=== PATIENT | female | born 2000 ===

== ENCOUNTER 2023-06-21 08:46 | Outpatient (CLI) | payer OTHER, SELFPAY | END 2023-06-21 08:47 | disposition home or self-care (01) | LOC: ANHAUDIO 08:47 | PROVIDERS: PCP Family Medicine; Visit Provider Family Medicine | DX: Z01.10 Encounter for examination of ears and hearing without abnormal findings (principal) | CPT/HCPCS: 92556; 92567 ==

== ENCOUNTER 2024-06-18 07:49 | Outpatient (CLI) | payer OTHER, SELFPAY ==
--- OUTSIDE RECORDS SUMMARY | 2024-06-18 07:52 | XMS_ITS ---
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 Name Role Phone ANDER ALANIS Attending Unavailable ALEXUS Gutierrez Primary Unavailable Immunization Immunization Date Status Additional Notes Code Code System MMR 11/27/2002 Completed 03 CVX IPV 2001 Completed 10 CVX IPV 2001 Completed 10 CVX IPV 07/31/2002 Completed 10 CVX DTaP 2001 Completed 20 CVX DTaP 2001 Completed 20 CVX DTaP 01/24/2002 Completed 20 CVX DTaP 11/27/2002 Completed 20 CVX varicella 07/31/2002 Completed 21 CVX Hib-Hep B 2001 Completed 51 CVX Hib-Hep B 2001 Completed 51 CVX Hib-Hep B 07/31/2002 Completed 51 CVX influenza, unspecified formulation 03/22/2003 Completed 88 CVX pneumococcal conjugate PCV 7 2001 Completed 100 CVX pneumococcal conjugate PCV 7 01/24/2002 Completed 100 CVX pneumococcal conjugate PCV 7 04/25/2002 Completed 100 CVX pneumococcal conjugate PCV 7 07/31/2002 Completed 100 CVX Influenza, live, trivalent, intranasal 03/01/2014 Completed 111 CVX meningococcal MCV4P 01/03/2019 Completed 114 CVX Influenza, split virus, quadrivalent, PF 01/22/2015 Completed 150 CVX Influenza, split virus, quadrivalent, PF 02/17/2016 Completed 150 CVX Influenza, split virus, quadrivalent, PF 02/07/2018 Completed 150 CVX Influenza, split virus, quadrivalent, PF 01/23/2021 Completed 150 CVX Influenza, split virus, quadrivalent, PF 04/28/2022 Completed 150 CVX HPV9 11/24/2015 Completed 165 CVX HPV9 01/03/2019 Completed 165 CVX COVID-19, mRNA, LNP-S, PF, 1 00 mcg/0.5mL dose or 50 mcg/0.25mL dose 07/02/2020 Completed 207 CVX COVID-19, mRNA, LNP-S, PF, 1 00 mcg/0.5mL dose or 50 mcg/0.25mL dose 07/30/2020 Completed 207 CVX COVID-19, mRNA, LNP-S, PF, 1 00 mcg/0.5mL dose or 50 mcg/0.25mL dose 03/10/2021 Completed 207 CVX COVID-19, mRNA, LNP-S, bivalent, PF, 50 mcg/0.5 mL or 25mcg/0.25 mL dose 08/13/2022 Completed 229 CVX Results US BREAST LEFT LTD - Complet ed: 07/20/2023 10:17 LOINC: See Scanned Image Attachment for Report Dictated By: Trans Initials: BG Trans Date: 07/21/23 11:28 <<REPDIST>> Social History Type Status Start Date End Date Code Code Syst em Smoking History Unknown if ever smoked [id number] Sex Female Assessment You had the following problems:OTHER HALFWAY (CURRENT) DRUG THERAPY Hospital Discharge Instructions Should you have any questions prior to discharge, please contact a member of your healthcare team. If you have left the hospital and have any questions, please contact your primary care physician. Reason For Referral No Data Found Problems Problem Start Date Resolved Date Status Code Code System OTHER HALFWAY (CURRENT) DR PRADO THERAPY active [id number] SNOMED-CT Plan of Treatment CT Facial Bones WO Contrast (55381) Encounters Encounter Diagnosis Start Date Code Code Sys tem Unspecified lump in the left breast, unspecified quadr ant 07/20/2023 SNOMED-CT Personal Care Team Section Performer Name Performer Role Active Date Inactive YU Victoria PCP - Primary care physician 2023-06-17 2023-07-20 TRACEY VAUGHAN PCP - Primary care physician 2023-07-20 Imaging Narrative Notes [facility] 07/21/2023 11:29 [facility] [address] [place], [place] [address] RADIOLOGY REPORT Patient Number: [id number] Patient Name: SUMA BECKMAN Type: O/P MR Number: [id number] : 2000 Age: 22 Sex: F Room #: Admit Date: 07/20/23 Discharge Date 07/20/23 Ordering Physician: ANDER ALANIS Family Physician: ALEXUS GARDUNO Second Physician: X-Ray Number : [id number] BREAST LEFT LTD [id number] COMPLETE:07/20/23 10:17 [facility] [id number] See Scanned Image Attachment for Report Dictated By: Trans Initials: BG Cooper Date: 07/21/23 11:28 <<REPDIST>>
--- OUTSIDE RECORDS SUMMARY | 2024-06-18 07:52 | XMS_ITS ---
Author Organization Unknown Address [address] [place] [phone] Phone Care Team Providers Care Flexible Nanny Name Role Phone SOL YU ENOCHNP Attending Unavailable Immunization Immunization Date Status Additional Notes [...] mL dose 08/13/2022 Completed 229 CVX Results TSH - Collect Date/Time: 10/2023 07:01 [facility] ID: [id number] [address] [place] [address], [phone] LOINC: 60082-1 Test Value Unit Reference Range Code Code System Flag TSH. 1.420 uIU/L L=0.470 H=4.680 54729-8 LOINC CBC W/ DIFF - Collect Date/T huseyin: 06/14/2023 07:01 [facility] ID: [id number] [address] [place] [address], [phone] LOINC: 52920-3 Test Value Unit Reference Range Code Code System Flag WBC 4.9 10^3uL L=4.8 H=10.8 RBC 5.48 10^6uL L=4.20 H=5.40 H HEMOGLOBIN 15.1 g/dL L=12.0 H=16.0 718-7 LOINC HEMATOCRIT 44.9 VOL% L=37.0 H=47.0 4544-3 LOINC MCV 81.9 fL L=81.0 H=99.0 MCH 27.6 pg L=27.0 H=32.0 MCHC 33.6 g/dL L=32.0 H=36.0 PLATELETS 276 10^3uL L=100 H=400 25991-1 LOINC RDW 14.1 % L=11.7 H=15.5 %GRAN 53.2 % L=40.0 H=70.0 20152-8 LOINC %LYMPH 40.1 % L=20.0 H=45.0 736-9 LOINC %MONO 4.3 % L=2.0 H=10.0 22980-7 LOINC %EOS 1.2 % L=0.0 H=6.0 713-8 LOINC %BASO 0.8 % L=0.0 H=3.0 706-2 LOINC #NEUT 2.6 10^3uL L=1.9 H=7.6 84581-5 LOINC #LYMPH 2.0 10^3uL L=0.9 H=4.9 45218-6 LOINC #MONO 0.2 10^3uL L=0.1 H=0.9 82316-3 LOINC #EOS 0.1 10^3uL L=0.0 H=0.6 712-0 LOINC #BASO 0.04 10^3uL L=0.00 H=0.10 84475-5 LOINC #IM GRANS 0.0 10^3uL L=0.0 H=7.0 01150-5 LOINC %IM GRANS 0.4 % L=0.0 H=5.0 96137-3 LOINC %NRB 0.0 L=0.0 H=0.2 81387-3 LOINC #NRB 0.000 L=0.000 H=0.012 89316-5 LOINC MANUAL DIFF NOT INDICATED RBC MORPH NOT INDICATED COMPREHENSIVE METABOLIC PANE L - Collect Date/Time: 06/14/2023 07:01 [facility] ID: [id number] [id number] [place], [place], [phone] LOINC: 53579-8 Test Value Unit Reference Range Code Code System Flag FASTING YES BUN 10 mg/dL L=7 H=20 3094-0 LOINC CREATININE 0.70 mg/dL L=0.52 H=1.04 2160-0 LOINC GLUCOSE 172 mg/dL L=74 H=106 2345-7 LOINC H SODIUM 139 mmol/L L=132 H=144 2951-2 LOINC POTASSIUM 4.5 mmol/L L=3.5 H=5.1 2823-3 LOINC CHLORIDE 108 mmol/L L=98 H=107 2075-0 LOINC H CO2 22.0 mmol/L L=22.0 H=30.0 2028-9 LOINC ANION GAP 14 L=10 H=20 97329-4 LOINC OSMOLALITY 291 mOs/kG L=280 H=296 46725-8 LOINC BUN/CREAT 14.3 3097-3 LOINC CALCIUM 9.6 mg/dL L=8.3 H=10.5 63864-2 LOINC AST 31 U/L L=15 H=46 1920-8 LOINC ALT 32 U/L L=9 H=72 1742-6 LOINC ALKALINE PHOS 78 U/L L=38 H=126 6768-6 LOINC TOTAL BILI 0.5 mg/dL L=0.2 H=1.3 1975-2 LOINC ALBUMIN 4.0 G/dL L=3.5 H=5.0 1751-7 LOINC TOTAL PROTEIN 6.9 g/L L=6.3 H=8.2 2885-2 LOINC A/G RATIO 1.4 68905-3 LOINC AGE 22 93193-3 LOINC eGFR NON-AFR 112 ml/min eGFR AFR AMER 136 ml/min HGB A1C -GLYCOHEMOGLOBIN - C ollect Date/Time: 06/14/2023 07:01 [facility] ID: [id number] [place], [place], [phone] LOINC: 4548-4 Test Value Unit Reference Range Code Code System Flag HGBA1C 5.3 % 4548-4 LOINC HIV 4th GEN Ab 1&2 p24 Ag in -house - Collect Date/Time: 06/14/2023 07:01 [facility] ID: [id number] [place], [place], [phone] LOINC: 75858-8 Test Value Unit Reference Range Code Code System Flag HIV-1 Ab NEGATIVE NORMAL: NON REACTIVE/NE HIV-2 Ab NEGATIVE HIV-p24 Ag NEGATIVE SEND TO IF? NO REFLEX? NO 5778-6 LOINC HEPATITIS C AB (HCV Ab) - Co llect Date/Time: 06/14/2023 07:01 [facility] ID: [id number] [address] [place] [address], [phone] LOINC: 37798-2 Test Value Unit Reference Range Code Code System Flag Hep C Virus Ab Non Reactive Non Reactive 39131-0 LOINC SEND TO IF? NO LIPID PANEL - Collect Date/T huseyin: 06/14/2023 07:01 [facility] ID: [id number] [address] [place] [address], [phone] LOINC: 04414-6 Test Value Unit Reference Range Code Code System Flag FASTING YES CHOLESTEROL 172 mg/dL L=0 H=200 2093-3 LOINC TRIGLYCERIDE 127 mg/dL L=0 H=150 2571-8 LOINC HDL 61 mg/dL L=40 H=60 2085-9 LOINC H LDL 80 mg/dL 9-1 LOINC Social History Type Status Start Date End Date Code Code Syst em Smoking History Unknown if ever smoked [id number] Sex Female Assessment You had the following problems:OTHER USP (CURRENT) DRUG THERAPY Hospital Discharge Instructions Should you have any questions prior to discharge, please contact a member of your healthcare team. If you have left the hospital and have any questions, please contact your primary care physician. 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
--- OUTSIDE RECORDS SUMMARY | 2024-06-18 07:53 | XMS_ITS | Data Portability ---
Author Organization [facility], [address] [place] [address] Neurology (ID) Address [address] [address] Care Team Providers Care Band Splicer Name Role Phone TRACEY VAUGHAN Primary Care Provider Assessment Encounter Date Assessment Date Assessment LastModified by Organization Details LastModified Time 12/14/2023 12/14/2023 History: This 23-year-old female who resides at [facility] and has developmental delays is brought in by her mom for evaluation. They had allergy testing done which found her to have milk and peanut allergies. They have been avoiding milk and peanuts. Her ears have been doing much better. No complaint of ear pain since making dietary changes and having treatment at last visit. Physical exam: Bilateral EACs are free of otorrhea or cerumen. Bilateral TMs are intact retracted. Middle ear spaces appear clear. Nose: No turbinate hypertrophy. Mouth: No oral lesion. Posterior pharynx: No erythema or exudate. No head or neck lymphadenopathy detected Impression: 1. Resolved chronic otitis externa 2. Eustachian tube dysfunction Plan: Recommended next visit on March 16 that we get a baseline audiogram and tympanogram for our chart. Mom states that patient does get hearing test done in [place] once a year. They are to contact us with any questions or problems [email or web address] Not available 12/14/2023 09:04:57 03/16/2024 03/16/2024 History: This pleasant 23-year-old female is here from [facility]. She has developmental delay she is accompanied to the appointment by ruthy Perla. Minda brings with her a copy of the patient's note From Her PCP Dated 12/26/2023. Visit patient's ear culture done 12/19/2023 had been reviewed. She had grown staph aureus which was susceptible to ciprofloxacin, clindamycin, erythromycin, gentamicin, levofloxcin, linezolid, moxifloxacin, oxacillin and rifampin. They treated with cephalexin 1000 mg twice daily for 10-day. Based on history it seems as though she starts to complain of ear pain most likely developing a middle ear infection and then ruptures her eardrum develops drainage and then outer ear infection. In July 2023 her ear culture done in our office grew Aspergillus and she was treated with boric acid/nystatin powder in the left ear weekly which they have continued. In October 2023 she was seen had chronic otitis externa of the left ear with resolving chronic myringitis she was treated at that time by reducing the amount of boric acid/nystatin powder to once daily. At last visit on 11/29 her left otitis externa and left myringitis were resolved and her left drum was intact retracted with middle ear space clear. Patient had ventilating tubes placed September [address] Lowry and removed in 2006 with Gelfoam patches. She has not had any other sets of tubes. The PCP note received was reviewed and it indicates that she has been seen in their office 9 times between June 2023 and December 2023 for the eye either otitis, sinusitis or pharyngitis issues. She is currently on treatment for allergic rhinitis with cetirizine 10 mg daily, montelukast 10 mg daily and a nasal steroid spray daily per PCP note. They did order a CT sinus which was completed on 01/04/2020 fourth which showed clear paranasal sinuses with minimal leftward nasal septal deviation and trace fluid in the left mastoid air cells. Current ear pain has been present for approximately 3 to 5 days. Caregiver states patient's been complaining and crying secondary to the severity of the ear pain. They have not seen any ear drainage. Patient requests tubes. Physical exam: Right EAC without cerumen excoriation. Right TM intact drum with mild retraction. Middle ear space appeared clear. Left EAC with a copious amount of cerumen and dried boric acid/nystatin powder which was removed under operating microscope with #5 and #3 suction to reveal the left drum to be intact retracted anteriorly with a mucopurulent effusion present in the left middle ear space with erythema of the left drum. No otorrhea present no granulation present. Nose: No turbinate hypertrophy. No purulent mucus. Mouth: No oral lesion. No head or neck lymphadenopathy detected. Nasopharynx: Verbal permission was obtained. Procedure was explained. Visualized with Flexible Machida Scope after topical anesthetizing the left nostril of Afrin and lidocaine. Nasopharynx was free of mass or lesion. The eustachian tube orifices were patent. Impression: 1. Acute left otitis media 2. Excessive cerumen in the left ear canal Plan: Left ear was cleaned under operating microscope. For treatment of left otitis media placed on clindamycin 300 mg 3 times daily for 10 days. Her office note brought by caregiver from 12/19/2023 was reviewed. They indicate patient has been seen 9 times between June 2023 and December 2023 for issues with recurrent otitis media, sinusitis and pharyngitis. She has been seen here twice since October 2023 for evaluation and follow-up of chronic otitis externa. At her last visit in December 2023 her left ear was clear and there is no otorrhea or granulation in the left canal but the left drum was retracted. Despite treating her allergy issues with antihistamine, montelukast and nasal steroid spray she continues with ear issues. She has a past history of ventilating tube placement in 2002. Given the recurrent nature of ear infections and the current infection present it is recommended she be considered for ventilating tube placement with Dr. Lowry. She has an appointment on April 24 for discussion. She may be able to tolerate this in office. She did very well with ear cleaning in office today. Her nasopharynx is evaluated in office today with Flexible Machida Scope there is no masses present in the nasopharynx to be occluding the left eustachian tube. SPECT the patient is having chronic middle ear effusions that developed into acute otitis media resulting in rupture of TM and purulent drainage and of the left ear canal that triggers otitis externa and has triggered the myringitis that was seen at previous visits, now resolved. [email or web address] Not available 03/16/2024 14:36:59 04/24/2024 04/24/2024 She is here for evaluation because of a persistent fluid in her left ear, is here for possible tympanostomy tube placement. She was last seen by Martin Whitley (Mollie) ENT PA-C back on March 16, and at that time was noted to have evidence of a recurrent effusion, she had multiple bouts of otitis media. She did not seen several times this past year, despite treating allergy issues, and antibiotics and has had agrees chronic middle ear effusions. She is now here for evaluation of possible left and possibly tube placement. PHYSICAL EXAMINATION: Well developed, well nourished in no acute distress. Patient able to communicate verbally with a normal voice. GENERAL: Inspection of head reveals no significant scars, lesions, or masses with good facial symmetry. EYES: Extraocular movements were intact with normal gaze. HEAD AND FACE: Overall appearance appeared normal. No scars, lesions, or masses. EARS: Both external pinnas were symmetric and without lesions. RIGHT external canal: normal, RIGHT tympanic membrane: clear and mobile . LEFT external canal: normal. LEFT tympanic membrane: Intact with a complete effusion. NOSE: External nose appeared straight; Septum was relatively straight nasal mucosa appeared normal. . MOUTH AND PHARYNX:Lips, and gums were unremarkable Exam of oral cavity, including oral mucosa, hard and soft palate were normal Tongue was normal Tonsils were small to absent, and posterior pharynx, appeared within normal limits. NECK: Supple with no evidence of masses, and palpation of the neck revealed no palpable lymphadenopathy; thyroid appeared normal and symmetric; trachea midline; overall appearance of neck appeared symmetrical. PLAN: 1. Procedure: After noting the persistent recurring problem with effusion and recurrent bouts otitis media in their LEFT ear, it was decided to proceed with a tube placement in the LEFT ear. The patient did agree, understand, and wish to proceed. The risks of the tympanostomy tube placement were discussed including but not limited to: persistent perforation, cholesteatoma, granulation tissue with ear bleeding, otorrhea as well as the risk of anesthesia were discussed. Informed consent was obtained. An explanation of the procedure was provided. The benefits and risks and of the procedure were discussed including the risks and benefits of alternative procedures, as well as the possible consequences of not undergoing the procedure were discussed. Patient/parent/leg al guardian did agree, understand, and wish to proceed. OPERATIVE PROCEDURE: LEFT tympanostomy tube placement with Dudley collar-button. SURGEON: Mikey Lowry M.D. ANESTHESIA: Local INDICATIONS: This patient has a history of persistent effusions. Therefore, it was decided to proceed with surgery at this time. FINDINGS: LEFT ear: Seromucoid otitis media DESCRIPTION OF PROCEDURE: The patient was placed in the supine position; attention was then turned to the LEFT external auditory canal. Cerumen was removed under microscopic control with use of curettes and forceps, and the TM was anesthetized with topical phenol in the inferior quadrant the tympanic membrane was incised in the inferior quadrant. The middle ear was then suctioned, and a tube was placed into the myringotomy without difficulty. The patient was awake and comfortable and did tolerate this well. COMPLICATIONS: None. ESTIMATED BLOOD LOSS: minimal. SPECIMENS: None. The patient is to use Cipro drops per orders. Postoperative instructions were given to the patient. They were instructed that they could get water in the ears. Follow up in the office in 1 month for recheck [email or web address] Not available 05/06/2024 22:30:12 Plan of Treatment Reminders Order Date Submit Date Provider Last Modified By Organization Details Last Modified Time Details Appointments Establish ed Patient 30.EST 2024 11:00A M CONNIE LEES Not available Not available Not available Establish ed Patient 15.EST 2024 07:45A Lisa Whitley Not available Not available Not available Lab urinalysi s, complete [address] [facility], [address] [place] [address], [id number], 05/11/2024 19:40:44 culture + sensitivi ty, urine [address] [facility], [address] [place] [address], [id number], 05/12/2024 19:23:00 Referral None recorded. Procedures None recorded. Surgeries None recorded. Imaging None recorded. Medication Orders clindamyc in HCl 300 mg capsule 2023 024 [facility], [address], [place], [id number], 03/16/2024 09:31:03 ciproflox acin 0.3 % eye drops 2023 024 [facility], [address], [place], [address], 04/24/2024 11:16:17 Patient TargetsNo targets recorded. Patient InstructionsNo instructions recorded. Reason for Referral None Reported. Results Created Date Observation Date Name Description Value Unit Range Abnormal Flag Note LastModifiedBy Organization Detail LastModifiedTime 05/11/1905/11/2024 urina lysis , compl ete urinalysis, complete LOW LEVEL S OF HEMOG LOBIN IN ABSEN CE OF HEMAT URIA MAY NOT BE [facility]IN[facility] SIGNI FICAN T. Not Available [facility] [address] [place] [address], [id number], 05/11/2024 19:40:44 05/11/1905/11/2024 urina lysis , compl ete color YELLOW Not Available [facility] [address] [place] [address], [id number], 05/11/2024 19:40:44 05/11/1905/11/2024 urina lysis , compl ete clarity TURBID Not Available [facility] [address] [place] [address], [id number], 05/11/2024 19:40:44 05/11/1905/11/2024 urina lysis , compl ete pH 5.5 5.0-7. 5 Not Available [facility] [address] [place] [address], [id number], 05/11/2024 19:40:44 05/11/1905/11/2024 urina lysis , compl ete specific gravity 1.030 1.000- 1.030 Not Available [facility] [address] [place] [address], [id number], 05/11/2024 19:40:44 05/11/1905/11/2024 urina lysis , compl ete blood NEGATI VE negati ve Not Available [facility] [address] [place] [address], [id number], 05/11/2024 19:40:44 05/11/19 25 05/11/2024 urina lysis , compl ete bilirubin NEGATI VE negati ve Not Available [facility] [address] [place] [address], [id number], 05/11/2024 19:40:44 05/11/19 25 05/11/2024 urina lysis , compl ete urobilinogen 0.2 0.2-1. 0 Not Available [facility] [address] [place] [address], [id number], 05/11/2024 19:40:44 05/11/19 25 05/11/2024 urina lysis , compl ete ketone TRACE negati ve abnormal Not Available [facility] [address] [place] [address], [id number], 05/11/2024 19:40:44 05/11/19 25 05/11/2024 urina lysis , compl ete glucose 3+ negati ve abnormal Not Available [facility] [address] [place] [address], [id number], 05/11/2024 19:40:44 05/11/19 25 05/11/2024 urina lysis , compl ete protein NEGATI VE negati ve Not Available [facility] [address] [place] [address], [id number], 05/11/2024 19:40:44 05/11/19 25 05/11/2024 urina lysis , compl ete nitrite NEGATI VE negati ve Not Available [facility] [address] [place] [address], [id number], 05/11/2024 19:40:44 05/11/19 25 05/11/2024 urina lysis , compl ete leukocytes NEGATI VE negati ve Not Available [facility] [address] [place] [address], [id number], 05/11/2024 19:40:44 05/11/19 25 05/11/2024 urina lysis , compl ete review * Micro scopi c resul ts revie wed by Techn oli st. Not Available [facility] [address] [place] [address], [id number], 05/11/2024 19:40:44 05/11/19 25 05/11/2024 urina lysis , compl ete RBC 0-2 0-2/hp f Not Available [facility] [address] [place] [address], [id number], 05/11/2024 19:40:44 05/11/19 25 05/11/2024 urina lysis , compl ete WBC 0-5 0-5/hp f Not Available [facility] [address] [place] [address], [id number], 05/11/2024 19:40:44 05/11/19 25 05/11/2024 urina lysis , compl ete squamous epithelial 6-10 0-10/h pf Not Available [facility] [address] [place] [address], [id number], 05/11/2024 19:40:44 05/11/19 25 05/11/2024 urina lysis , compl ete bacteria 1+ none abnormal Not Available [facility] [address] [place] [address], [id number], 05/11/2024 19:40:44 05/11/19 25 05/11/2024 urina lysis , compl ete hyaline cast 0-2 0-2/lp f Not Available [facility] [address] [place] [address], [id number], 05/11/2024 19:40:44 05/11/19 25 05/11/2024 urina lysis , compl ete calcium oxalate crystal PRESEN T absent abnormal Not Available [facility] Only - [facility] [address] [place] [address], [id number], 05/11/2024 19:40:44 05/11/19 25 05/12/2024 cultu re + sensi tivit y, urine urine culture and sens. BRAEDEN L URINE >100, 000 CFU/m L Mixed uroge nital ruthy , 3 or more colon y types indic ative of conta minat ion. Not Available [facility] [address] [place] [address], [id number], 05/12/2024 19:23:00 Result Notes None recorded. Problems Name Problem SNOMED Code Status Onset Date Resolution Date Notes Provider Name and Address Organization Details Recorded Time Chronic otitis externa 76897203 Active 2023 Martin Whitley PA-C [address] [place] [address], [address] [place] [address] 3, [facility] 4 09:05:31 Dysfunct ion of bilatera l eustachi an tubes 14466874375 80281 Active 2023 Martin Whitley PA-C [address] [place] [address], [address], [facility] 4 09:05:48 Excessiv e cerumen in ear canal 104408647 Active 2023 Martin Whitley PA-C [address] [place] [address], [address], [facility] 4 09:27:46 Acute left otitis media 710971803 Active 2023 Martin Whitley PA-C [address] [place] [address], [address] 3, [facility] 4 09:27:56 Chronic mucoid otitis media of left middle ear 26491608833 00693 Active 2023 Martin Whitley PA-C [address] [place] [address], [address] 3, [facility] 4 14:36:05 Genuine stress incontin ence 23056987 Active 2024 Kena Cole APRN, [employer] [address] , [place], [address], [facility] 5 10:28:03 Nocturna l enuresis 3024414 Active 2024 Kena Cole APRN, [employer] [address] , [place], [address], [facility] 5 10:28:09 Urinary crystal, calcium oxalate 719152297 Active 2024 Mariama saleh, [facility] 5 14:14:28 Chronic otitis externa 84868207 Completed 202312/14/2023 Removal Reason: Resolved Martin Whitley PA-C [address] [facility], [place], [address], [facility] 4 09:05:31 Chronic left myringit is 10303383690 [address]8611 Completed 202312/14/2023 Removal Reason: Resolved Martin Whitley PA-C [address] [facility], [place], [address], [facility] 4 09:05:20 Impacted cerumen in left ear 21816342469 84104 Active 2023 Martin Whitley PA-C [address] [facility], [place], [address], [facility] 4 11:07:11 Problem Notes None recorded. Medical Equipment None Reported. Allergies Allergen ID Allergen Name Allergen Category Reaction Reaction Severity Criticality Documentation Date Start Date Code Code System Note Provider Name and Address Organization Details Recorded Time 317849 Substance with sulfonami de structure and antibacte rial mechanism of action (substanc e) medicatio n rash Not available Not available 06/06/20232006 13683 8489 SNOMED React ion: Rash; Not Available Not Available Not Available Medications Name Sig Start Date Stop Date Status Note LastModified by Organization Details LastModified Time hydroxyzine pamoate 100 mg capsule TAKE ONE CAPSULE BY MOUTH AT BEDTIME 10/31 completed Not Available Not Available Not Available acetaminoph en 325 mg tablet Take 2 tablets every 4 hours by oral route as needed. active Not Available Not Available No t Available clindamycin HCl 300 mg capsule Take 1 capsule 3 times a day by oral route for 10 days. 2023 active Not Available Not Available Not Avai lable trazodone 50 mg tablet TAKE 1 AND 1/2 TABLETS BY MOUTH AT BEDTIME active Not Available Not Available No t Available cetirizine 10 mg tablet active Not Available Not Available Not Available fluconazole 150 mg tablet TAKE 1 TABLET BY MOUTH A ONE TIME DOSE - REPEAT IN 3 DAYS IF NO IMPROVEME NT 10/31 completed Not Available Not Available Not Available propranolol ER 60 mg capsule,24 hr,extended release take 1 capsule every day by oral route in the morning active Not Available Not Available No t Available venlafaxine ER 150 mg capsule,ext ended release 24 hr TAKE 1 CAPSULE BY MOUTH ONCE DAILY active Not Available Not Available No t Available sumatriptan 50 mg tablet TAKE ONE TAKE BY MOUTH AT ONSET OF MIGRAINE. MAY REPEAT IN TWO HOURS IF NEEDED active Not Available Not Available No t Available hydroxyzine pamoate 50 mg capsule TAKE 1 CAPSULE BY MOUTH EVERY MORNING active Not Available Not Available No t Available propranolol 40 mg tablet TAKE ONE TABLET BY MOUTH TWO TIMES A DAY 12/13 completed Not Available Not Available Not Available ciprofloxac in 0.3 % eye drops 3 drops to left ear at bedtime for 14 days. 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 2024 active Not Available Not Available Not Avai lable cephalexin 500 mg capsule 03/16 completed Not Available Not Available Not Available nystatin 100,000 unit/gram topical cream 12/13 completed Not Available Not Available Not Available buspirone 10 mg tablet TAKE TWO TABLETS BY MOUTH THREE TIMES A DAY active Not Available Not Available No t Available clotrimazol e 1 % topical solution INSTILL ONE TO TWO DROPS INTO AFFECTED EAR(S) TWICE DAILY WITH CIPRODEX DROPS FOR SEVEN DAYS 10/31 completed Not Available Not Available Not Available montelukast 10 mg tablet TAKE 1 TABLET BY MOUTH ONCE DAILY active Not Available Not Available No t Available ondansetron 4 mg disintegrat ing tablet Place 1 tablet every 6 hours by transling ual route as needed. active Not Available Not Available No t Available cefdinir 300 mg capsule TAKE 1 CAPSULE BY MOUTH EVERY 12 HOURS FOR 7 DAYS 10/31 completed Not Available Not Available Not Available methylpheni date ER 18 mg tablet,exte nded release 24 hr TAKE ONE TABLET BY MOUTH EVERY DAY active Not Available Not Available No t Available fluticasone propionate 50 mcg/actuati on nasal spray,suspe nsion SHAKE WELL AND SPRAY TWICE IN EACH NOSTRIL ONCE DAILY 12/13 completed Not Available Not Available Not Available clotrimazol e 1 % topical cream 12/13 completed Not Available Not Available Not Available medroxyprog esterone 150 mg/mL intramuscul ar suspension USE TO ADMINISTE R 1 ML IN THE MUSCLE EVERY 3 MONTHS active Not Available Not Available No t Available prazosin 2 mg capsule TAKE 2 CAPSULES BY MOUTH EVERY NIGHT AT BEDTIME active Not Available Not Available No t Available amoxicillin 875 mg-potassiu m clavulanate 125 mg tablet TAKE ONE TABLET BY MOUTH EVERY 12 HOURS UNTIL GONE 12/13 completed Not Available Not Available Not Available neomycin-po lymyxin-hyd rocort 3.5 mg-10,000 unit/mL-1 % ear drops,susp 12/13 completed Not Available Not Available Not Available ciprofloxac in 0.3 %-dexametha sone 0.1 % ear drops,suspe nsion INSTILL TWO DROPS INTO LEFT EAR TWICE DAILY WITH CLOTRIMAZ OLE DROPS FOR SEVEN DAYS 10/31 completed Not Available Not Available Not Available solifenacin 10 mg tablet TAKE ONE TABLET BY MOUTH EVERY DAY active Not Available Not Available No t Available nystatin (bulk) Nystatin and Boric acid powder. SI puffs in left ear on Tuesdays active Not Available Not Available No t Available levocetiriz ine 5 mg tablet TAKE ONE TABLET BY MOUTH EVERY DAY IN THE EVENING 12/13 completed Not Available Not Available Not Available ClearLax 17 gram/dose oral powder 12/13 completed Not Available Not Available Not Available polyethylen e glycol 3350 (bulk) granules mix 1 capful in 8 oz of fluid of patient choice, hold for diarrhea active Not Available Not Available No t Available Probiotic 20 billion cell capsule Take 1 capsule by oral route for 10 days. 11/08/ 2024 active Not Available Not Available Not Avai lable Blink Tears 0.25 % eye drops instill 1 drop into both eyes as needed active Not Available Not Available No t Available Nurtec ODT 75 mg disintegrat ing tablet take 1 tabelt every other day by oral route active Not Available Not Available No t Available Qulipta 60 mg tablet Take 1 tablet every day by oral route. 12/13 completed Not Available Not Available Not Available albuterol 90 mcg-budeson raheel 80 mcg/actuati on HFA aerosol inhaler Inhale 2 inhalatio ns every 4 hours by inhalatio n route as needed. active Not Available Not Available No t Available Vitals Date Recorded Body height Body mass index (BMI) Body weight Heart rate Body temperature Systolic blood pressure Diastolic blood pressure Provider Name and Address Organization Details Last Updated DateTime 4 157.48 cm 42.8 kg/m2 756862. 61 g 103 /min 98.1 [degF] 122 mm[Hg] 74 mm[Hg] [facility] 4 08:42:59 Date Recorded Body height Body mass index (BMI) Body weight Body temperature Heart rate Systolic blood pressure Diastolic blood pressure Provider Name and Address Organization Details Last Updated DateTime 4 157.48 cm 45.2 kg/m2 610669. 32 g 98.1 [degF] 112 /min 143 mm[Hg] 79 mm[Hg] [facility] 4 08:56:48 Date Recorded Body height Body mass index (BMI) Body weight Body temperature Heart rate Systolic blood pressure Diastolic blood pressure Provider Name and Address Organization Details Last Updated DateTime 4 157.48 cm 45.8 kg/m2 134265. 81 g 97.9 [degF] 112 /min 122 mm[Hg] 73 mm[Hg] Edwige Sloan [facility] 4 10:31:26 Date Recorded Body height Body mass index (BMI) Body weight Heart rate Oxygen saturation Oxygen saturation in Arterial blood by Pulse oximetry Systolic blood pressure Diastolic blood pressure Provider Name and Address Organization Details Last Updated DateTime 5 157.48 cm 45.9 kg/m2 588576. 68 g 70 /min 99 % 99 % 122 mm[Hg] 82 mm[Hg] [facility] 10:16:42 Social History None recorded. Functional Status None recorded. Mental Status None recorded. Family History Nothing Reported. Medical History No medical history recorded. Gynecological HistoryNo gynecological history recorded. Obstetrics History GPAL:G 0 P 0 0 0 0 Past Encounters Encounter ID Performer Location Encounter Start Date Encounter Closed Date Diagnosis/Indication Diagnosis SNOMED-CT Code Diagnosis ICD10 Code Diagnosis Note [id number] AUSTIN Perez [facility] (ID) [address] [place] [address] 11/01/2023 10:22:36 11/01/2023 11:05:28 Chronic otitis externa 73061798 H60.62 Chronic le ft myringitis 4960192586 422740 H73.12 Impacted c erumen in left ear 8239112056 012936 H61.22 [id number] AUSTIN Perez [facility] (ID) [address] [facility],[address] [place] [address] 12/14/2023 08:26:26 12/14/2023 09:04:05 Chronic otitis externa 34438341 H60.62 Dysfunctio n of bilateral eustachian tubes 9145984391 144275 H69.93 [id number] AUSTIN Perez [facility] (ID) [address] [facility],[address] [place] [address] 03/16/2024 08:40:57 03/16/2024 10:47:11 Excessive cerumen in ear canal 806745730 H61.22 Acute left otitis media 891821044 H66.92 Chronic mu coid otitis media of left middle ear 1690542579 384525 H65.492 [id number] Mikey Lowry MD José Miguel [facility] (ID) [address] [place] [address] 04/24/2024 10:16:26 04/24/2024 12:28:09 Chronic mucoid otitis media of left middle ear 8181670895 195518 H65.492 [id number] Kena Cole, AYAKA, JV BASEBALL COACH [facility] [facility] (ID) [address] [place] [address] 05/11/2024 09:56:37 05/11/2024 12:41:39 Genuine stress incontinence 69759474 N39.3 Nocturnal enuresis 22770 08 N39.44 Health Concerns Section Related Observation LastModified by Organization Detai ls LastModified Time None Recorded Concern Status LastModified by Organization Details LastModified Time None Recorded Advance Directives Directive None Recorded Payers Encounter Date Sequence Insurance Name Policy Number Policy Bearden Covered Member ID Bearden Member ID Guarantor Name 12/14/2023 1 [facility] [id number] Yamel Gutierrez Juan Joseesch [id number] Alyssa Andre Groesch 12/14/2023 1 [facility] ON OR AFTER 11/06/20 (MEDICAID REPLACEMENT - HMO) 2EHA Yamel Groesch [id number] Alyssa A Groesch 03/16/2024 1 [facility] ON OR AFTER 11/06/20 (MEDICAID REPLACEMENT - HMO) 2EHA Yamel Groesch [id number] Alyssa A Groesch 04/24/2024 1 [facility] ON OR AFTER 11/06/20 (MEDICAID REPLACEMENT - HMO) 2EHA Yamel Groesch [id number] Alyssa A Groesch 05/11/2024 1 [facility] ON OR AFTER 11/06/20 (MEDICAID REPLACEMENT - HMO) 2EHA Yamel Groesch [id number] Alyssa A Groesch Notes Date Note Type Note Provider Name and Address Organization Details Recorded Time 05/11/2024 text/html Chief Complaint: Yamel Woodruff is a 23-year-old female presents today for follow-up. I saw her back in April 2023. She was having problems with urinary incontinence. Recommendation was physical therapy. She had been on Myrbetriq in the past and was on Solifenacin. She was at home at the time, however, her mother thought she was going to go into care home. History of Present Illness: Today the patient is in a care home in [place]. She is accompanied by staff member from the facility. She still has some urinary incontinence. She denies dysuria or gross hematuria. She has constipation and uses MiraLAX. She has been drinking more water and less soda. She also has incontinence at night. She does not smoke. Postvoid residual from today 0 ml Review of SystemsShe has shortness of breath related to asthma and chronic nausea which she has medication for. No chest pain. Vitals, medical problems, medications, and allergies are noted below. Physical exam:Patient is alert and cooperative. In no acute distress. Skin warm and dry.Extraocular movements are intact.Head normocephalic.Normal hearingCardiac: Regular rate and rhythmTrachea midline.Respirations deep and regular.Abdomen soft, obese. There is no suprapubic or flank tenderness.2+ edema to lower extremitiesGait is normal and without defect. Assessment & Plan: Urinary stress incontinence, nocturnal enuresis - the patient states she takes medicine so she does not wake up at night. Recommend physical therapy for pelvic floor strengthening, limiting fluids 2 hours before bed, and elevation of the legs throughout the day to help with lower extremity edema. We will do a UA C&S today and she will follow-up in our office after she finishes physical therapy. Kena Cole, AYAKA, JV BASEBALL COACH [address] [place] [address], [phone], [place] [facility] 05/13/2024 12:24:16 OBGyn Episode No OBEpisode recorded.
--- OUTSIDE RECORDS SUMMARY | 2024-06-18 07:53 | XMS_ITS | Patient Health Summary ---
Author Organization [facility] Address [address] [place] [address] Care Team Providers Care Construction Director Name Role Phone Unavailable Primary Care Provider Unavailabl e Note from [facility],non-owned Affiliates and Associated Physician Practices is amultiple site organization consisting of ambulatory clinics and hospital sitesin [place], [place] and [place]. This disclosure is being madepursuant to the Care Everywhere program and may not contain all information available regarding this patient. Last updated 18.[facility] Allergies * Sulfa Drugs(Rash) -Low Criticality Medications * Be aware that medications may not be up to date on this document. Alwaysverify current medications with the patient. * busPIRone (Buspar) 10 MG tablet Take 2 (two) tablets by mouth 3 times daily * fluticasone propionate (Flonase) 50 MCG/ACT nasal spray [place] 2 (two) sprays into each nostril once daily * hydrOXYzine HCl (Atarax) 50 MG tablet Take 1 (one) tablet by mouth 3 times daily * venlafaxine XR 24hr (Effexor XR) 150 MG capsule Take 1 (one) capsule by mouth daily with breakfast * traZODone (Desyrel) 50 MG tablet Take 1 (one) tablet by mouth at bedtime Take one and half tabs * solifenacin (Vesicare) 10 MG tablet Take 1 (one) tablet by mouth once daily * Atogepant (Qulipta) 60 MG TABS Take 1 (one) tablet by mouth once daily * propranolol (Inderal) 40 MG tablet Take 1 (one) tablet by mouth 2 times daily * prazosin (Minipress) 2 MG capsule Take 1 (one) capsule by mouth at bedtime * polyethylene glycol 3350 (Miralax) 17 g packet Take 17 (seventeen) g by mouth once daily as needed for Constipation * montelukast (Singulair) 10 MG tablet Take 1 (one) tablet by mouth at bedtime * medroxyPROGESTERone (Depo-Provera) 150 MG/ML vial Inject 1 mL into muscle Every 90 days * sertraline (Zoloft) 100 MG tablet Take 1 (one) tablet by mouth once daily Active Problems Problem Noted Date Diagnosed Date Great toe pain, left 04/11/2019 07/30/2023 Anxiety 12/26/2018 07/30/2023 Asthma 12/26/2018 07/30/2023 Attention deficit disorder (ADD) 12/26/2018 07/30/2023 Ingrown toenail 12/26/2018 07/30/2023 Social History Tobacco Use Types Packs/Day Years Used Date Smoking Tobacco: Never Assessed Sex and Gender Information Value Date Recorded Sex Assigned at Not on file Gender Identity Not on file Sexual Orientation Not on file Last Filed Vital Signs Vital Sign Reading Time Taken Comments Blood Pressure 123/53 07/30/2023 5:35 PM CDT Pulse 112 07/30/2023 5:35 PM CDT Temperature 35.8 C (96.5 F) 07/30/2023 5:35 PM CDT Respiratory Rate 16 07/30/2023 5:35 PM CDT Oxygen Saturation 99% 07/30/2023 5:35 PM CDT Inhaled Oxygen Concentration - - Weight 104.3 kg (230 lb) 07/30/2023 5:35 PM CDT Height 160 cm (5' 3 ) 07/30/2023 5:35 PM CDT Body Mass Index 40.74 07/30/2023 5:35 PM CDT Procedures * CULTURE URINE(Performed 07/30/2023) Performed for Acute cystitis with hematuria * URINALYSIS - POCT (IP) URGENT CARE(Performed 07/30/2023) Performed for Acute cystitis with hematuria Results * (ABNORMAL) CULTURE URINE (07/30/2023 5:41 PM CDT) Culture Urine >100,000 CFU/mL Escherichia coli(A) PIETER 08/02/2023 5:25 AM CDT [facility] Urine URINE SPECIMEN OBTAINED BY CLEAN CATCH PROCEDURE / Unknown Collection / Unknown 07/30/2023 5:41 PM CDT 07/30/2023 5:41 PM CDT Narrative Organism Antibiotic Method Susceptibility Escherichia coli Amikacin PIETER <=2 ug/mL: Susceptible Escherichia coli Ampicillin PIETER >=32 ug/mL: Resistant Escherichia coli Ampicillin-sulbactam PIETER >=32 ug/mL: Resistant Escherichia coli Cefazolin PIETER <=4 ug/mL: See Comment* Escherichia coli Cefazolin-Urine (uncomplicated infections ONLY) PIETER <=4 ug/mL: Susceptible Escherichia coli Cefepime PIETER <=1 ug/mL: Susceptible Escherichia coli Ceftriaxone PIETER <=1 ug/mL: Susceptible Escherichia coli Ciprofloxacin PIETER <=0.25 ug/mL: Susceptible Escherichia coli Extended-Spectrum Beta-Lactamase PIETER NEG ug/mL: Neg Escherichia coli Gentamicin PIETER <=1 ug/mL: Susceptible Escherichia coli Meropenem PIETER <=0.25 ug/mL: Susceptible Escherichia coli Nitrofurantoin PIETER <=16 ug/mL: Susceptible Escherichia coli Piperacillin-tazobactam PIETER <=4 ug/mL: Susceptible Escherichia coli Tobramycin PIETER <=1 ug/mL: Susceptible Escherichia coli Trimethoprim-sulfame thoxaz ole PIETER <=20 ug/mL: Susceptible Comment: *Cefazolin PIETER of </=4 cannot distinguish between susceptible or intermediate for systemic breakpoints. If further defined interpretation is needed, call Microbiology and a disk diffusion test will be performed. Urine breakpoints for cefazolin should only be used when treating uncomplicated UTIs including men and women without urologic abnormality, kidney stones, stents, nephrostomy tubes, signs/symptoms of systemic illness, or pelvic/perineal pain in men. Cefazolin results can be used to predict susceptibility to oral cephalosporins - cephalexin, cefprozil, cefaclor, cefuroxime, cefdinir, and cefpodoxime. For complicated UTIs, use alternative cefazolin susceptibility result above. Amber Arteaga APRN-GEAR TESTER LAB - MICROBIOL OGY ORDERABLES [facility] [address] [place], [place] [address], [facility] [phone] * (ABNORMAL) URINALYSIS - POCT (IP) URGENT CARE (07/30/2023 5:36 PM CDT) Glucose UA neg Negative [facility] Bilirubin UA neg Negative [facility] Ketone UA neg Negative [facility] Specific [place] UA POCT 1.025 1.000 - 1.030 [facility] Blood UA 2+(A) Negative [facility] pH UA 5.0 5.0 - 8.0 pH units [facility] Protein UA 1+ Negative [facility] Urobilinogen UA 0.2 0.2 - 1.0 EU/dL [facility] Nitrite UA pos(A) Negative [facility] Leukocyte UA 3+(A) Negative [facility] QC Verified Yes Yes [facility] Urine URINE / Unknown 07/30/2023 5 :36 PM CDT Amber Arteaga GANG KNIFE FISH CHOPPER-GEAR TESTER LAB - POINT OF CARE ORDERABLES [facility] [address] [place] [address], [facility] [phone]
--- OUTSIDE RECORDS SUMMARY | 2024-06-18 07:53 | XMS_ITS ---
Author Organization Unknown Address [address] [place] [phone] Phone Care Team Providers Care Non Licensed Nuclear Plant Operator Name Role Phone ANDER ALANIS Attending [...] mL dose 08/13/2022 Completed [address] SINUS W/O CONTRAST - Comp leted: 01/04/2024 08:41 LOINC: EXAM DESCRIPTION: CT SINUS W/O CONTRAST REASON FOR STUDY: CHRONIC SINUS PRESSURE BILATERAL FACE Duration: MORE THAN A YEAR Previous Surgery: WISDOM TEETH REMOVED TECHNIQUE: Noncontrast scanning through the paranasal sinuses using bone algorithm. Reconstructed MPR images reviewed. All images stored on PACS. Automated exposure control was used as a dose optimization technique for this examination. COMPARISON: None FINDINGS: Paranasal sinuses are clear. The ostiomeatal unit complexes are patent. Minimal leftward deviation of the nasal septum. TMJ are normal. Trace left mastoid air cell effusion. The orbits are intact. Technically limited evaluation of the brain demonstrates no gross acute abnormality. IMPRESSION: ? ? Clear paranasal sinuses. ? ? Minimal leftward deviation of the nasal septum. ? ? Trace left mastoid air cell effusion. THIS IS AN ELECTRONICALLY VERIFIED FINAL REPORT 01/05/2024 3:38 AM - Electronically signed by Philippe Elizabeth M.D. 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 If you have left the hospital and have any questions, please contact your primary care physician. 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
--- OUTSIDE RECORDS SUMMARY | 2024-06-18 07:53 | XMS_ITS ---
Author Organization Unknown Address [address] [place] [phone] Phone Care Team Providers Care Beam Builder Helper Name Role Phone SOL STUBBSHNP Attending Unavailable ALEXUS Gutierrez Primary Unavailable Immunization [...] mL dose 08/13/2022 Completed 229 CVX Results COMPREHENSIVE METABOLIC PANE L - Collect Date/Time: 11/01/2023 06:50 [facility] [id number] [address] [place], [place], [phone] LOINC: 56070-3 Test Value Unit Reference Range Code Code System Flag FASTING NO BUN 9 mg/dL L=7 H=20 3094-0 LOINC CREATININE 0.80 mg/dL L=0.52 H=1.04 2160-0 LOINC GLUCOSE 87 mg/dL L=74 H=106 2345-7 LOINC SODIUM 139 mmol/L L=132 H=144 2951-2 LOINC POTASSIUM 4.3 mmol/L L=3.5 H=5.1 2823-3 LOINC CHLORIDE 109 mmol/L L=98 H=107 2075-0 LOINC H CO2 26.0 mmol/L L=22.0 H=30.0 2028-9 LOINC ANION GAP 8 L=10 H=20 85658-0 LOINC L OSMOLALITY 286 mOs/kG L=280 H=296 38750-5 LOINC BUN/CREAT 11.3 3097-3 LOINC CALCIUM 9.6 mg/dL L=8.3 H=10.5 12978-7 LOINC AST 33 U/L L=15 H=46 1920-8 LOINC ALT 32 U/L L=9 H=72 1742-6 LOINC ALKALINE PHOS 81 U/L L=38 H=126 6768-6 LOINC TOTAL BILI 0.4 mg/dL L=0.2 H=1.3 1975-2 LOINC ALBUMIN 3.9 G/dL L=3.5 H=5.0 1751-7 LOINC TOTAL PROTEIN 6.8 g/L L=6.3 H=8.2 2885-2 LOINC A/G RATIO 1.3 88719-4 LOINC AGE 23 21427-8 LOINC eGFR NON-AFR 95 ml/min eGFR AFR AMER 115 ml/min LIPID PANEL - Collect Date/T huseyin: 11/01/2023 06:50 [facility] [id number] [place], [place], [phone] LOINC: 66214-5 Test Value Unit Reference Range Code Code System Flag FASTING NO CHOLESTEROL 161 mg/dL L=0 H=200 2093-3 LOINC TRIGLYCERIDE 111 mg/dL L=0 H=150 2571-8 LOINC HDL 63 mg/dL L=40 H=60 5-9 LOINC H LDL 71 mg/dL 2088-1 LOINC HGB A1C -GLYCOHEMOGLOBIN - C ollect Date/Time: 11/01/2023 06:50 [facility] [id number] [place] [address], [phone] LOINC: 4548-4 Test Value Unit Reference Range Code Code System Flag HGBA1C 5.2 % 4548-4 LOINC CBC W/ DIFF - Collect Date/T huseyin: 11/01/2023 06:50 [facility] [id number] [place] [address], [phone] LOINC: 19428-6 Test Value Unit Reference Range Code Code System Flag WBC 4.9 10^3uL L=4.8 H=10.8 RBC 5.44 10^6uL L=4.20 H=5.40 H HEMOGLOBIN 14.8 g/dL L=12.0 H=16.0 718-7 LOINC HEMATOCRIT 45.0 VOL% L=37.0 H=47.0 4544-3 LOINC MCV 82.7 fL L=81.0 H=99.0 MCH 27.2 pg L=27.0 H=32.0 MCHC 32.9 g/dL L=32.0 H=36.0 PLATELETS 274 10^3uL L=100 H=400 51186-9 LOINC RDW 14.1 % L=11.7 H=15.5 %GRAN 47.7 % L=40.0 H=70.0 96909-0 LOINC %LYMPH 42.8 % L=20.0 H=45.0 736-9 LOINC %MONO 7.1 % L=2.0 H=10.0 68825-8 LOINC %EOS 1.2 % L=0.0 H=6.0 713-8 LOINC %BASO 0.8 % L=0.0 H=3.0 706-2 LOINC #NEUT 2.3 10^3uL L=1.9 H=7.6 20919-9 LOINC #LYMPH 2.1 10^3uL L=0.9 H=4.9 45434-1 LOINC #MONO 0.4 10^3uL L=0.1 H=0.9 57554-5 LOINC #EOS 0.1 10^3uL L=0.0 H=0.6 712-0 LOINC #BASO 0.04 10^3uL L=0.00 H=0.10 43579-4 LOINC #IM GRANS 0.0 10^3uL L=0.0 H=7.0 60126-4 LOINC %IM GRANS 0.4 % L=0.0 H=5.0 85190-0 LOINC %NRB 0.0 L=0.0 H=0.2 58554-1 LOINC #NRB 0.000 L=0.000 H=0.012 89292-0 LOINC MANUAL DIFF NOT INDICATED RBC MORPH NOT INDICATED Social History Type Status Start Date End Date Code Code Syst em Smoking History Unknown if ever smoked [address] Sex Female Assessment You had the following problems:OTHER NURSING HOME (CURRENT) DRUG THERAPY Hospital Discharge Instructions Should you have any questions prior to discharge, please contact a member of your healthcare team. If you have left the hospital and have any questions, please contact your primary care physician. 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
--- OUTSIDE RECORDS SUMMARY | 2024-06-18 07:53 | XMS_ITS ---
Author Organization Unknown Address [address] [place] [phone] Phone Care Team Providers Care Upper Doubler Name Role Phone JAZLYN BELTRÁNES Attending Unavailable ALEXUS Gutierrez Primary Unavailable Immunization [...] mL dose 08/13/2022 Completed 229 CVX Results ABDOMEN 1V OR FLAT PLATE - C ompleted: 05/21/2024 09:44 LOINC: \TM00\12PI\DRAo\BM09\ \MRLo\ [address] [address] ---------NAME--------- NUMBER SEX AGE ADMIT DISC. XRAY# F/C TYPE SUMA HUERTA [id number] F 23 05/21/24 05/21/24 49708 XB7 O/P DATE OF : 2000 M/R# [id number] PH#: [phone] \MRHx\ LOCATION: TRANSCRIBED: 05/21/24 10:19 ABDOMEN 1V OR FLAT PLATE 46628 COMPLETED:05/21/24 9:44 [facility] [address] {REASON-ABDOMEN: CALCIUM OXALATE CRYSTALS IN URINE PHYSICIAN: JAZLYN AGN R A D I O L O G Y R E P O R T Date: 05/21/2024 09:45 AM Examination: ABDOMEN 1V OR FLAT PLATE History: CALCIUM OXALATE CRYSTALS IN URINE Comparison: None TECHNIQUE: Frontal views of the abdomen was obtained. FINDINGS: Bowel gas pattern is unremarkable. The lung bases are unremarkable. No acute osseous abnormality identified. IMPRESSION: Nonobstructive bowel gas pattern. No definite radiopaque calculi are present. 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 If you have left the hospital and have any questions, please contact your primary care physician. Reason For Referral No Data Found Problems Problem Start Date Resolved Date Status Code Code System OTHER CARE HOME (CURRENT) DR PRADO THERAPY active [id number] SNOMED-CT Plan of Treatment CT Facial Bones WO Contrast (63502) Encounters Encounter Diagnosis Start Date Code Code Sys tem Abnormal urine 05/21/2024 993107729 SNOMED-CT Personal Care Team Section Performer Name Performer Role Active Date Inactive YU Victoria PCP - Primary care physician 2023-06-17 2023-07-20 TRACEY VAUGHAN PCP - Primary care physician 2023-07-20 Imaging Narrative Notes [facility] 05/21/2024 10:21 [facility] [address] [place] [address] ---------NAME--------- NUMBER SEX AGE ADMIT DISC. XRAY# F/C TYPE GROESCH RK HUERTA [id number] F 05/21/24 05/21/24 21982 XB7 O/P DATE OF : 2000 M/R# [id number] #: [id number] RM LOCATION: TRANSCRIBED: 05/21/24 10:19 ABDOMEN 1V OR FLAT PLATE 92739 COMPLETED:05/21/24 9:44 [facility] [address] {REASON-ABDOMEN: CALCIUM OXALATE CRYSTALS IN URINE PHYSICIAN: JAZLYN AGN RADIOLOGY REPORT Date: 05/21/2024 09:45 AM Examination: ABDOMEN 1V OR FLAT PLATE History: CALCIUM OXALATE CRYSTALS IN URINE Comparison: None TECHNIQUE: Frontal views of the abdomen was obtained. FINDINGS: Bowel gas pattern is unremarkable. The lung bases are unremarkable. No acute osseous abnormality identified. IMPRESSION: Nonobstructive bowel gas pattern. No definite radiopaque calculi are present. Consider CT examination F MEDICAL DIRECTOR Reviewed and Electronically Signed by: Trevor Parra MD Signed Date: 05/21/24 10:19
--- OUTSIDE RECORDS SUMMARY | 2024-06-18 07:53 | XMS_ITS | Clinical Summary ---
Author Organization [facility] Address [address] [place] [address] Care Team Providers Care Clam Dredge Boat Captain Name Role Phone Unavailable Primary Care Provider Unavailabl e Source Comments [facility],non-owned Affiliates and Associated Physician Practices is amultiple site organization consisting of ambulatory clinics and hospital sitesin [place], [place], [place]. This disclosure is being madepursuant to the Care Everywhere program and may not contain all information available regarding this patient. Last updated 18.[facility] Allergies Active Allergy Reactions Criticality Noted Date Comments Sulfa Drugs Rash Low 05/28/2013 Medications * Be aware that medications may not be up to date on this document. Alwaysverify current medications with the patient. Medication Sig Dispensed Refills Start Date End Date Status busPIRone (Buspar) 10 MG tablet Take 2 (two) tablets by mouth 3 times daily Active fluticasone propionate (Flonase) 50 MCG/ACT nasal spray [place] 2 (two) sprays into each nostril once daily Active hydrOXYzine HCl (Atarax) 50 MG tablet Take 1 (one) tablet by mouth 3 times daily Active venlafaxine XR 24hr (Effexor XR) 150 MG capsule Take 1 (one) capsule by mouth daily with breakfast Active traZODone (Desyrel) 50 MG tablet Take 1 (one) tablet by mouth at bedtime Take one and half tabs Active solifenacin (Vesicare) 10 MG tablet Take 1 (one) tablet by mouth once daily Active Atogepant (Qulipta) 60 MG TABS Take 1 (one) tablet by mouth once daily Active propranolol (Inderal) 40 MG tablet Take 1 (one) tablet by mouth 2 times daily Active prazosin (Minipress) 2 MG capsule Take 1 (one) capsule by mouth at bedtime Active polyethylene glycol 3350 (Miralax) 17 g packet Take 17 (seventeen) g by mouth once daily as needed for Constipation Active montelukast (Singulair) 10 MG tablet Take 1 (one) tablet by mouth at bedtime Active medroxyPROGESTERone (Depo-Provera) 150 MG/ML vial Inject 1 mL into muscle Every 90 days Active sertraline (Zoloft) 100 MG tablet Take 1 (one) tablet by mouth once daily Active Active Problems Problem Noted Date Diagnosed Date [...] Mass Index 40.74 07/30/2023 5:35 PM CDT Plan of Treatment Health Maintenance Due Date Last Done Comments PAP SMEAR 2001 HIV SCREENING 2016 HPV VACCINE (1 - 3-dose series) 2016 CHLAMYDIA/GONORRHEA SCREENING 2017 MENINGOCOCCAL (Group B) VACCINE (1 of 2 - Standard) 2017 HEPATITIS C SCREENING 07/24/2019 DTAP/TDAP/TD VACCINES (1 - Tdap) 2020 HEPATITIS B VACCINE (1 of 3 - 19+ 3-dose series) 2020 PNEUMOCOCCAL VACCINE (1 of 2 - PCV) 2020 COVID-19 VACCINE (5 - season) 2024 08/13/2022, 03/10/2021, 07/30/2020, Additional history exists INFLUENZA VACCINE (#1) 2024 2, 01/23/2021, 02/22/2019, Additional history exists DEPRESSION SCREENING 05/09/2024 ZOSTER VACCINE (1 of 2) 07/29/2051 HIB VACCINE Aged Out No longer eligi ble based on patient's age to complete this topic MENINGOCOCCAL VACCINE Aged Out No mu joann eligible based on patient's age to complete this topic Guarantor Name Account Type Relation to Patient Date of Phone Billing Address Yamel Woodruff Personal/Family Self [address] [place] [id number]
--- OUTSIDE RECORDS SUMMARY | 2024-06-18 07:53 | XMS_ITS | Referral Summary ---
Author Organization [facility] Address [address] [place] [address] Care Team Providers Care Patient Portal Representative Name Role Phone Unavailable Primary Care Provider Unavailabl e Source Comments [facility],non-owned Affiliates and Associated Physician Practices is amultiple site organization consisting of ambulatory clinics and hospital sitesin [place], [place], [place] and [place]. This disclosure is being madepursuant to the Care Everywhere program and may not contain all information available regarding this patient. Last updated 18.[facility] Allergies Active Allergy Reactions Criticality Noted Date [...] fluticasone propionate (Flonase) 50 MCG/ACT nasal spray [place] 2 (two) sprays into each nostril once [...] 07/30/2023 5:35 PM CDT Plan of Treatment Not on file
== END 2024-06-18 07:50 | disposition home or self-care (01) ==
LOC: ANHAUDIO 07:50
PROVIDERS: PCP Family Medicine; Visit Provider Family Medicine
DX: Z01.10 Encounter for examination of ears and hearing without abnormal findings (principal); Z96.22 Myringotomy tube(s) status; H66.92 Otitis media, unspecified, left ear
CPT/HCPCS: 92552; 92556; 92567